=== PATIENT | male | born 1970 | race Caucasian/White ===

== ENCOUNTER 2019-09-04 15:30 | Observation (INO) | payer BC, SELFPAY ==
[2019-09-04] VITALS (11 sets, daily range): BP systolic 154–174; BP diastolic 94–124; PULSE 69–88; RESP 14–19; TEMP 35.4–36.6; O2SAT 96–100; BMI 35.7
--- NOTE | ~2019-09-04 | CT_ITS ---
EXAMINATION: CTA brain carotid DATE: 09/04/2019 21:35 INDICATION: Dizziness TECHNIQUE: Computed tomographic angiography (CTA) of the head was performed without and with 100 mL O mnipaque-350 intravenous contrast. CTA of the neck was performed with intravenous contrast. The dose- length product was 1220.17 mGy-cm. Maximum intensity projection and volume rendered 3D-reconstruction s were created by the technologist on a separate workstation. Automated exposure control and iterativ e reconstruction technique were employed. COMPARISON: Noncontrast CT from earlier today FINDINGS: HEAD CTA: There is no intracranial hemorrhage, acute infarction, or abnormal mass lesion. The ventri cles are normal. There is no abnormal mass effect or midline shift. The foster-white matter differentia tion is normal. The basal cisterns are patent. The orbits are normal. The paranasal sinuses, mastoids and calvarium are normal. There is no significant stenosis of the basilar artery or posterior cerebral arteries. There is no si gnificant stenosis of the intracranial internal carotid arteries or the anterior or middle cerebral a rteries. The anterior communicating artery and posterior communicating arteries are normal. There is no aneurysm. NECK CTA: The thyroid gland is unremarkable. The submandibular and parotid glands are symmetric. Ther e is no lymphadenopathy. There are no masses identified. The airway is unremarkable. There are no oss eous abnormalities. The orbits are unremarkable. The superior mediastinum is unremarkable. There is m ild cervical spondylosis. There is 0% stenosis of the proximal right internal carotid artery relative to normal distal artery l umen diameter (NASCET criteria). There is 0% stenosis of the proximal left internal carotid artery re lative to normal distal artery lumen diameter. IMPRESSION: 1. No acute intracranial abnormality. Normal head CTA. 2. 0% stenosis of the proximal right internal carotid artery relative to normal distal artery lumen d iameter (NASCET criteria). 3. 0% stenosis of the proximal left internal carotid artery relative to normal distal artery lumen di ameter. Reviewed, dictated and finalized at location A. IMPRESSION: 1. No acute intracranial abnormality. Normal head CTA. 2. 0% stenosis of the proximal right internal carotid artery relative to normal distal artery lumen diameter (NASCET criteria). 3. 0% stenosis of the proximal left internal carotid artery relative to normal distal artery lumen diameter.
--- NOTE | ~2019-09-04 | MR_ITS ---
EXAMINATION: MR brain/brain stem wo/w con DATE: 09/05/2019 08:18 CDT INDICATION: Dizziness and difficulty ambulating TECHNIQUE: Magnetic resonance imaging (MRI) of the brain and brainstem was performed without and with 20 cc MultiHance intravenous contrast. Sequences included sagittal and axial T1-weighted SE, axial d iffusion-weighted FS SE, axial T2*-weighted GRE, axial T2-weighted FLAIR Propeller, and axial T2-weig hted Propeller. Apparent diffusion coefficient (ADC) maps were created. COMPARISON: CT dated 09/04/2019 FINDINGS: The brain volume and ventricular system are within normal limits. The brain parenchymal si gnal intensity pattern and foster/white matter is normal and there is no evidence of hemorrhage, space occupying masses or infarctions. The flow signal voids of the major arterial structures about the [place] and within the ru[place] r dural venous sinuses appear grossly unremarkable and patent. The seventh and eighth cranial nerve complexes are normal. The mid sagittal image demonstrates a normal craniovertebral junction and kurt us callosum. Small mucous retention cyst of the right maxillary sinus. No evidence for disconjugate g aze. No abnormal contrast enhancement was appreciated. IMPRESSION: 1: No acute intracranial abnormality. Reviewed, dictated and finalized at location A.
--- NOTE | ~2019-09-04 | CT_ITS ---
EXAMINATION: CT brain wo con INDICATION: Dizziness, hypertension COMPARISON: None TECHNIQUE: Standard unenhanced head CT. The dose-length product (DLP) was 756.67 mGy-cm. The mA was a djusted according to patient size. Iterative reconstruction technique was employed. FINDINGS: There is no intracranial hemorrhage, acute infarction, or abnormal mass lesion. The ventric les are normal. There is no abnormal mass effect or midline shift. The foster-white matter differentiat ion is normal. The basal cisterns are patent. The orbits are normal. The paranasal sinuses, mastoids and calvarium are normal. IMPRESSION: 1. No acute intracranial abnormality. Reviewed, dictated and finalized at location A.
--- NOTE | ~2019-09-04 | XR_ITS ---
EXAMINATION: XR chest 2V DATE: 09/04/2019 18:41 INDICATION: Dizziness and hypertension TECHNIQUE: AP and lateral views of the chest are obtained. COMPARISON: 12/31/2008 FINDINGS: The lungs are free of acute opacities. There is no pleural effusion or pneumothorax. The ca rdiomediastinal silhouette is normal. The visualized bones and soft tissues are unremarkable. IMPRESSION: 1. No acute cardiopulmonary abnormality. Reviewed, dictated and finalized at location A.
--- NOTE | 2019-09-04 15:35 | ECG_ITS ---
Measurements Intervals [place] Rate: 80 P: -25 ME: 164 QRS: -26 QRSD: 91 T: -26 QT: 352 QTc: 408 Interpretive Statements SINUS RHYTHM INCOMPLETE RIGHT BUNDLE BRANCH BLOCK CANNOT RULE OUT SEPTAL INFARCT, AGE INDETERMINATE BORDERLINE T WAVE ABNORMALITY- DIFFUSE LEADS BASELINE ARTIFACT- I, II, III, AVL, V1 ABNORMAL ECG Electronically Signed On 09-04-2019 15:57:35 CDT by Que Loo D.O.
[2019-09-04 16:00] LABS: Basophils Absolute Auto 0.1 K/mm3 (0.0-0.1); Basophils Percent Auto 0.7 % (0.2-1.2); Eosinophils Absolute Auto 0.4 K/mm3 (0-0.3); Eosinophils Percent Auto 3.6 % (0-4.4); Hematocrit 47.4 % (42.0-52.0); Hemoglobin 15.9 g/dL (14.0-18.0); Immature Granulocyte Absolute 0.02 K/mm3 (0.00-0.031); Immature Granulocyte Percent A 0.2 % (0-0.5); Lymphocytes Absolute Auto 3.26 K/mm3 (0.9-3.2); Mean Corpuscular HGB Conc 33.5 g/dl (32-36); Mean Corpuscular Hemoglobin 30.2 pg (26-34); Mean Corpuscular Volume 90.1 fl (80-100); Mean Platelet Volume 9.9 fl (7.4-10.4); Monocytes Absolute Auto 1.3 K/mm3 (0.1-0.6); Monocytes Percent Auto 12.3 % (2.6-8.5); Neutrophils Absolute Auto 5.2 K/mm3 (1.3-6.7); Neutrophils Percent Auto 51.2 % (45.5-73.1); Platelet Count Result 243 k/mm3 (150-375); Red Blood Count 5.26 M/mm3 (4.6-6.20); Red Cell Distribution Width 13.5 % (11.5-14.5); White Blood Count 10.2 K/mm3 (4.5-10.0)
[2019-09-04 16:13] LABS: Blood Urea Nitrogen 16 mg/dL (9-20); Calcium 9.6 mg/dL (8.4-10.2); Carbon Dioxide 27 mmol/L (22-30); Chloride 106 mmol/L (98-107); Estimated CRCL calculation 102 ml/min; Estimated Glomerular Filt Rate > 60; Glucose 90 mg/dL (75-110); Potassium 3.9 mmol/L (3.4-5.0); Sodium 139 mmol/L (137-145)
[2019-09-04] MEDS: ONDANSETRON INJ 4 MG/2 ML VIAL (16:26)
--- NOTE | 2019-09-04 16:26 | PC.NURSE ---
vrbo for zofran [address] armando x1
[2019-09-04] MEDS: MECLIZINE HCL 25 MG TABLET PO (17:12)
[2019-09-04] MEDS: SODIUM CHLORIDE 0.9% IV 1,000 ML 999 ML IV CONT (17:13)
--- NOTE | 2019-09-04 17:37 | ED.DIZZY ---
HPI - Dizziness General Chief Complaint: Dizziness Stated Complaint: dizzy/ htn Time Seen by Provider: 09/04/19 16:44 Source: patient Mode of arrival: wheelchair Limitations: no limitations History of Present Illness HPI Narrative: This is a 49 year old male that presents to the ER for dizziness since this morning. Reports he was sitting at his desk working and suddenly started to feel dizzy. Reports this improved without intervention. Reports another episode a couple hours later. Reports this afternoon dizziness started again and it has been constant since. Reports he feels like the room is spinning. Reports vomiting. Denies vision changes, chest pain, shortness of breath, numbness or weakness. Related Data Home Medications Medication Instructions Recorded Confirmed ramipril [Altace] 10 mg PO DAILY 09/04/19 09/04/19 Allergies Allergy/AdvReac Type Severity Reaction Status Date / Time No Known Allergies Allergy Verified 09/04/19 15:30 Review of Systems Review of Systems: Narrative: CONSTITUTIONAL: Denies fever EYES: Denies visual changes CARDIOVASCULAR: Denies chest pain RESPIRATORY: Denies cough or dyspnea. GASTROINTESTINAL: Reports vomiting NEUROLOGIC: Denies headache, numbness, or weakness. All systems reviewed & are unremarkable except as noted in HPI and below PMFSH Past Medical History Medical History (Updated 09/04/19 @ 21:48 by Kinza Bridges PA-C) History of hypertension History of prostate cancer Surgical History Surgical History (Updated 09/04/19 @ 17:44 by Kinza Bridges PA-C) History of hernia repair History of prostatectomy Family History Family History (Updated 02/05/12 @ 13:25 by DOCTOR UNKNOWN) Other Cerebrovascular accident Social History Social History Smoking status: Never smoker Alcohol intake: current Gender identity (if verbalized by the patient): Male Exam Narrative: Exam Narrative: GENERAL: Well-appearing, well-nourished, and in no acute distress. HEAD: Normocephalic, atraumatic. EYES: PERRLA and EOMI. ENT: Nares clear, no rhinorrhea or epistaxis. Mucous membranes moist. Oropharynx without tonsillar hypertrophy exudate or other lesions. Bilateral TMs pearly foster non-bulging NECK: Supple. No adenopathy or masses. CHEST: Clear to auscultation. No respiratory distress. No wheezes rales or rhonchi HEART: Regular rate and rhythm. No murmur heard. Normal peripheral pulses. EXTREMITIES: Normal range of motion. No edema. SKIN: Warm, dry, no rash. NEURO: No focal deficits. Alert and oriented x3. Cranial nerves II through XII grossly intact. Normal [id number]. Normal hcco-bf-[id number]. Unsteady gait PSYCH: Normal mood and affect Course Consultations Consultation #1: Spoke with hospitalist about patient and work-up accepts admission Date: 09/04/19 Time: 21:33 Consultation #2: Spoke with neurologist who will consult Date: 09/04/19 Time: 21:34 Vital Signs Vital signs: Vital Signs Respiratory Rate 14 09/04/19 15:32 Temperature 97.9 F 09/04/19 20:15 Pulse Rate 72 09/04/19 20:15 Respiratory Rate 16 09/04/19 20:15 Blood Pressure 157/94 H 09/04/19 20:15 Pulse Oximetry 98 09/04/19 20:15 MDM - Dizziness MDM Narrative Medical decision making narrative: Patient presents to the emergency department for dizziness since this morning. Had a couple acute episodes this morning and then has felt constantly dizzy since this afternoon. Patient's blood pressure elevated 150s-170s systolic. Otherwise vitals are normal. Patient does have an unsteady gait, otherwise he is neurologically intact. CBC and metabolic panel are without acute findings. Chest x-ray is without acute changes. CT scan of the brain is without acute findings. EKG with nonspecific ST changes. Patient denies any chest pain. Patient given IV fluids, meclizine, Zofran and Ativan without relief. Still with unsteady gait. Patient will be admitted for further evaluation and yennifer
--- NOTE | 2019-09-04 23:11 | ADMGEN ---
This patient, Ozzie Strauss, was admitted to Medical Room 347-. Patient/family oriented to hospital policies and general routines including ID bracelet, bed and alarms, visiting hours, pain management, procedures, bathroom and other care routines, personal items, smoking policy, room service/diet, and visiting hours. Valuables list has been completed. Information on how to activate the Rapid Response Team has been discussed. Patient/Family are encouraged to report perceived risks to care and to ask questions if they do not understand what they are told or what they should do.
[2019-09-05] VITALS: PULSE 73
[2019-09-05 04:00] VITALS: PULSE 61
[2019-09-05 05:49] VITALS: BP 137/88; PULSE 71; RESP 16; TEMP 36.3; O2SAT 99
--- NOTE | 2019-09-05 06:41 | PM.IMHP ---
H&P: HPI History of Present Illness Chief complaint: Dizzy Narrative: Date and time of patient contact: 09/05/2019 at 6:00 a.m. Ozzie Strauss is a 49 year old male with a past medical history of obesity and hypertension who presented to the ER with vertigo. The patient had been sitting at his computer, working from home, when he had a brief episode of dizziness associated with some mild nausea. The episode initially lasted 1 or 2 minutes. It reoccurred a few minutes later but then resolved until the afternoon. In the afternoon E had dizziness that was more severe and accompanied with with severe nausea and diaphoresis. The dizziness has been constant since that time and is worse with position changes. Dizziness is slightly worse when turning his head to the right. He reported that the dizziness was so severe that he had some difficulty focusing to read the words on his admission paperwork. He did check his blood pressures at home and noted that they were elevated to 160/120. When he arrived to the ER his blood pressures were in the 160s over 100 range for the most part. He had never had similar symptoms. He had denies any ear pain or fullness, recent upper respiratory symptoms, fevers or chills. The patient admits that he does snore quite a bit. He claims that he feels well rested after sleeping. He drinks 6-8 alcoholic beverages a night. He denies ever having symptoms of alcohol withdrawal. Has went several days without alcohol use in the past. Review of Systems Review of Systems: Narrative: 12 systems were reviewed with pertinent positives and negatives per HPI. Except as documented in the HPI, all other systems were reviewed and are negative. [facility] Past Medical History Medical History (Updated 09/05/19 @ 08:11 by Praveena Calderon DO) Essential hypertension History of prostate cancer Obesity (BMI 30-39.9) Surgical History Surgical History (Updated 09/04/19 @ 17:44 by Kinza Bridges PA-C) History of hernia repair History of prostatectomy Family History Family History (Updated 09/05/19 @ 07:56 by Praveena Calderon DO) Father Hypertension Renal cancer Diabetes mellitus Mother Hypertension Sibling Hypertension Sister Social History Social History (Updated 09/05/19 @ 08:06 by Praveena Calderon DO) Social History: Primary care physician: Dr. Daryl Cordova Smoking status: Never smoker Alcohol intake: current Drinks per week: 50 Alcohol use details: He drinks 6-8 alcoholic beverages a day. Substance use: never Substance use type: does not use Additional living arrangements comments: He lives in [place] with his of 25 years. He has 3 sons ages 22 and 19-year-old twins. 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 Gender identity (if verbalized by the patient): Male Spiritual care concerns: No Meds Home Medications and Allergies Home Medications Medication Instructions Recorded Confirmed Type albuterol sulfate 1 inh INHALATION QID PRN 09/04/19 09/04/19 History ramipril [Altace] 10 mg PO DAILY 09/04/19 09/04/19 History Allergies Allergy/AdvReac Type Severity Reaction Status Date / Time No Known Allergies Allergy Verified 09/04/19 15:30 Vital Signs Vital Signs - 24 hr 09/04/19 15:32 09/04/19 15:47 09/04/19 17:13 Temperature 95.8 F L Pulse Rate 88 82 Respiratory Rate 14 16 16 Blood Pressure 161/100 H 156/109 H Pulse Oximetry 99 98 09/04/19 17:44 09/04/19 18:00 09/04/19 18:02 Temperature Pulse Rate 72 70 75 Respiratory Rate 19 Blood Pressure 156/95 H 154/100 H 174/124 H Pulse Oximetry 96 09/04/19 18:25 09/04/19 19:12 09/04/19 20:15 Temperature 97.9 F Pulse Rate 70 69 72 Respiratory Rate 18 18 16 Blood Pressure 160/107 H 154/112 H 157/94 H Pulse Oximetry 97 99 98
[2019-09-05 08:00] VITALS: PULSE 76
[2019-09-05] MEDS: ramipriL 5 MG CAPSULE 10 MG PO (08:33)
[2019-09-05] MEDS: MECLIZINE HCL 25 MG TABLET PO ×3 (08:33→16:03)
[2019-09-05] MEDS: ONDANSETRON INJ 4 MG/2 ML VIAL IV PUSH (08:33)
[2019-09-05 12:00] VITALS: PULSE 70
--- NOTE | 2019-09-05 15:11 | PM.DS ---
DS: Admitting Diagnosis Admitting Diagnosis Admitting Diagnosis: Dizziness and giddiness DS: Discharge Diagnosis Discharge Diagnosis (1) Vertigo: Code(s): R42 - Dizziness and giddiness Status: Acute Assessment and Plan: Unclear if this is central versus peripheral vertigo. Brain MRI and head/neck CTA unremarkable. Neurology has been consulted and states patient is okay for discharge from their standpoint Neurology recommends Meclizine TID scheduled. Patient states this has helped some. Will do 1 weeks worth with follow up with PCP Will do Zofran as needed for nausea and vomiting for one week Will place order for vestibular PT as well F/u with PCP in 1-2 weeks (2) Hypertension: Code(s): I10 - Essential (primary) hypertension Status: Acute Assessment and Plan: Patient's blood pressures were moderately elevated last night. BP improved today. 140s sys this afternoon Continue the patient's home RADHA-inhibitor F/u with PCP. DS: Summary Hospital Course Reason for hospitalization: Vertigo, CVA r/o Hospital Course: Patient is a 49 yo M with history of hypertension, obesity, and prostate cancer who presented to the ED on 09/03 with complaints of dizziness that started that morning. While in the ED, Head CT was obtained and showed no acute intracranial abnormality; meclizine, zofran, ativan and IVF were given without relief and patient walking with an unsteady gait which CVA was still of concern. Patient admitted under this setting. Please see H&P for further details. Presenting VS: BP 161/100, HR 88, RR 14, temp 95.8, sat 99% RA Presenting Pertinent labs: CBC and chemistry grossly unremarkable Micro: none Imaging: Head CT 09/04/19 18:48 IMPRESSION: 1. No acute intracranial abnormality. Chest X-Ray 09/04/19 19:24 IMPRESSION: 1. No acute cardiopulmonary abnormality Head/Neck CTA 09/04/19 21:41 IMPRESSION: 1. No acute intracranial abnormality. Normal head CTA. 2. 0% stenosis of the proximal right internal carotid artery relative to normal distal artery lumen diameter (NASCET criteria). 3. 0% stenosis of the proximal left internal carotid artery relative to normal distal artery lumen diameter. Brain MRI 09/05/19 08:16 IMPRESSION: 1: No acute intracranial abnormality. ECG: Interpretive Statements SINUS RHYTHM INCOMPLETE RIGHT BUNDLE BRANCH BLOCK CANNOT RULE OUT SEPTAL INFARCT, AGE INDETERMINATE BORDERLINE T WAVE ABNORMALITY- DIFFUSE LEADS BASELINE ARTIFACT- I, II, III, AVL, V1 ABNORMAL ECG Patient was admitted to the hospitalist service for further evaluation for vertigo and CVA rule out; Dr. Hoang (Neurology) was consulted for further input on the matter. As above, imaging was grossly unremarkable for any acute findings making CVA unlikely. No masses/lesions noted on brain imaging either. Day of discharge patient stated meclizine helped somewhat with his symptoms. Neurology felt this was likely labyrinthine dysfunction with exam suggestive of underlying vestibular pathology. Neurology was cleared for discharge from their standpoint. They recommended meclizine three times daily and zofran for any nausea or vomiting. Vestibular PT referral was provided at discharge as well. He was to follow up with his PCP and Neurology after discharge. Patient and agreeable and comfortable with plan for discharge. Patient hemodynamically stable and in improved condition for discharge on 09/04. Status at Discharge Overall status at discharge: patient is progressing back to baseline Time Spent with Patient Time attestation: Total time spent providing and/or coordinating discharge services: Time spent: Greater than 30 minutes Exam Narrative: Exam Narrative: Patient sitting upright in bed at time of visit. is in room visiting Const: General: cooperative, healthy appearing, comfortable, no acute distress, well developed and
[2019-09-05 15:16] VITALS: BP 147/91; PULSE 72; RESP 18; TEMP 36.1; O2SAT 98
--- NOTE | 2019-09-05 16:41 | CONS_ITS ---
DATE OF CONSULTATION: 09/04/2019 HISTORY OF PRESENT ILLNESS: A 49-year-old right-handed male has been admitted to [facility] through the emergency room with the complaints of being dizzy. Reportedly, he has been sitting at his computer working from home when he had a brief episode of dizziness with mild nausea. Episode lasted for about couple of minutes, recurred a few minutes later, but then resolved until the afternoon. In the afternoon, he had dizziness, which is more severe accompanied with severe nausea and diaphoresis that is constant, aggravated by the position changes, but even turning his head to the right, dizziness was so severe that he has had some difficulty in focusing to read the words on the admission paperwork. His blood pressure was checked at home, it was 160/120. When he arrived in the emergency room, sit down to 160/100. He never had a similar symptomatology in the past. He drinks 6 to 8 alcoholic beverages at night. He has no history of alcohol withdrawal. PAST MEDICAL HISTORY: Consistent with the essential hypertension, prostate cancer, and obesity with BMI of 30 to 39.9. PAST SURGICAL HISTORY: Surgically, he has undergone hernial repair, prostatectomy, never smoker. Drinks alcohol. Currently 6 to 8 beverages per day, never substance abuser. At the time of admission to the hospital, he was taking albuterol sulfate inhalation, ramipril 10 mg daily. ALLERGIES: HE IS NOT ALLERGIC TO ANY MEDICATION. PHYSICAL EXAMINATION: VITAL SIGNS: Evaluation up until now documented him to be afebrile, pulse 88, respiration 14, blood pressure 161/100, pulse ox 99%. GENERAL: Physical examination revealed him to be awake, alert, cooperative, in no obvious acute distress. His weight of 119.5 kg. The BMI of 35.7. HEENT: Head normocephalic with no cranial bruit. Ear, nose, throat examination was normal. NECK: Supple with no cervical bruit. No thyromegaly. No lymphadenopathy. HEART: Regular. LUNGS: Clear. ABDOMEN: Soft. NEUROLOGICAL: He was awake, alert, oriented x3. Speech not dysphasic, not dysarthric, not dysphonic. Pupils are round, regular, react to light equally. Extraocular movements were full with the nystagmus, particularly more looking to the left side. At this particular time, though it is still there on looking to the right side as well. Facial sensation intact. Face symmetrical. Tongue midline. Uvula midline. Motor examination revealed him to have no drift of 1 side or other side. Reflexes symmetrical. Plantar downgoing. LABORATORY DATA: Evaluation up until now included CBC with WBC 10.2, hemoglobin 15.9, platelet count 243. Normal basic metabolic panel. EKG with incomplete right bundle-branch block. CT scan of the head negative. Chest x-ray negative. CTA was also done, which revealed no evidence of large arterial stenosis, in fact, there was 0% bilaterally. MRI of the brain has also been done, which revealed no evidence of acute intracranial abnormality. IMPRESSION: Labyrinthine dysfunction with normal CTA and normal brain and MRI and also abnormal clinical neurological examination with bilateral nystagmus, more prominent on looking to the left side suggestive for underlying vestibular pathology. TERESITA CANELA M.D. PSYCH SOCIAL WORKER PSYCH SOCIAL WORKER D I MT: [place]
== END 2019-09-05 16:20 | disposition home or self-care (01) ==
LOC: ANHED 21:04 → ANH3MED 21:39
PROVIDERS: Admitting Provider Internal Medicine; Emergency Provider Emergency Medicine; PCP Psychiatry & Neurology Neurology; Visit Provider Internal Medicine
DX: R42 Dizziness and giddiness (principal); I10 Essential (primary) hypertension; R26.81 Unsteadiness on feet; E66.9 Obesity, unspecified; Z68.35 Body mass index [BMI] 35.0-35.9, adult; Z85.46 Personal history of malignant neoplasm of prostate
CPT/HCPCS: 36415; 70450; 70496; 70498; 70553; 71046; 80048; 85025; 93005; 96361; 96374; 96375; 96376; 99285; A9270; A9577; G0378; J2060; J2405; J3360; J7030; Q9967

== ENCOUNTER 2021-08-02 10:55 | Emergency (ER) | payer OTHER, SELFPAY ==
[2021-08-02 11:04] VITALS: BP 141/107; PULSE 83; RESP 16; TEMP 36.1; O2SAT 100
--- NOTE | 2021-08-02 12:23 | ED.EXTPRO ---
HPI - Extremity Problem General Chief complaint: Extremity Problem,Nontraumatic Stated complaint: pain,swelling redness right foot Time Seen by Provider: 08/02/21 12:16 Source: patient Mode of arrival: ambulatory Limitations: no limitations History of Present Illness HPI Narrative: Patient presents today complaining of pain, swelling, and redness to the base of the right first toe x3 days that has continued to worsen since onset. Denies numbness or tingling. He is pain-free at rest, but increases to 7/10 with any movement or weightbearing. He has been taking ibuprofen with mild relief. Denies any history of gout or diabetes. Related Data Home Medications Medication Instructions Recorded Confirmed ramipril 10 mg capsule (Altace) 10 mg PO DAILY 09/04/19 08/02/21 atorvastatin 10 mg tablet 10 mg PO DAILY 08/02/21 08/02/21 Allergies Allergy/AdvReac Type Severity Reaction Status Date / Time No Known Allergies Allergy Verified 08/02/21 11:35 Review of Systems Review of Systems: CONSTITUTIONAL: Denies body aches, fever, chills, or sweats. EYES: Denies visual changes, redness, or discharge. ENT: Denies rhinorrhea, congestion, sore throat, or otalgia. CARDIOVASCULAR: Denies chest pain, palpitations, or edema. RESPIRATORY: Denies cough or dyspnea. GASTROINTESTINAL: Denies abdominal pain, nausea, vomiting, or diarrhea. GENITOURINARY: Denies dysuria or hematuria. SKIN: Denies rash, itching, or wounds. MUSCULOSKELETAL: Denies back pain, or myalgia.+ Right first toe swelling and pain NEUROLOGIC: Denies headache, numbness, tingling, or weakness. PSYCH: Denies depression or anxiety. [facility] Past Medical History Medical History Essential hypertension History of prostate cancer Obesity (BMI 30-39.9) Surgical History Surgical History History of hernia repair History of prostatectomy Family History Family History Father Hypertension Renal cancer Diabetes mellitus Mother Hypertension Sibling Hypertension Sister Social History Social History Social History: Primary care physician: Dr. Daryl Cordova Smoking status: Never smoker Alcohol intake: current Drinks per week: 50 Alcohol use details: He drinks 6-8 alcoholic beverages a day. Substance use: never Substance use type: does not use Additional living arrangements comments: He lives in [place] with his of 25 years. He has 3 sons ages 22 and 19-year-old twins. 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 Gender identity (if verbalized by the patient): Male Spiritual care concerns: No Comments At time of signature, I have reviewed and agree with nursing past medical, surgical, social and family history unless otherwise noted. Please see nursing chart for further information. There is no relevant family history pertinent to the presenting complaint Exam Narrative: GENERAL: Well-appearing, well-nourished, and in no acute distress. HEAD: Normocephalic, atraumatic. EYES: EOMI. No redness or drainage. Conjunctivae normal. ENT: Mucous membranes pink and moist. NECK: Normal AROM. CHEST: No respiratory distress. EXTREMITIES: Mild to moderate swelling and mild erythema to the right first MTP with tenderness to palpation. The erythema faintly extends proximally. Distal sensation intact. Capillary refill normal. Pedal pulse normal. Full range of motion of all toes with increased pain in the first toe. SKIN: Warm, dry, no rash. Capillary refill normal. Normal skin turgor. NEURO: No focal deficits. Alert and oriented x3. Gait steady. PSYCH: Normal affect. No si
== END 2021-08-02 12:39 | disposition home or self-care (01) ==
PROVIDERS: Emergency Provider Nurse Practitioner
DX: M10.9 Gout, unspecified (principal); I10 Essential (primary) hypertension; E66.9 Obesity, unspecified; Z68.35 Body mass index [BMI] 35.0-35.9, adult; Z85.46 Personal history of malignant neoplasm of prostate; Z90.79 Acquired absence of other genital organ(s)
CPT/HCPCS: 99213; G0463

== ENCOUNTER 2024-02-17 00:58 | Day surgery (SDC) | payer OTHER, SELFPAY ==
[2024-02-08 12:46] VITALS: BMI 34.0
--- NOTE | 2024-02-08 12:51 | PC.NURSE ---
Report to the Outpatient Waiting Room, entrance under the green pavilion located off [facility], at time _1000_ on date _[id number]_. Planned Procedure Time: _1200_.? Time changes happen often and if your time is changed the preop area will call you the afternoon before. - You and your visitor will be asked to self-screen and do not enter if you have any COVID symptoms. Please call surgeon if you need to reschedule. - A mask is optional within the hospital at this time. Patients may have clear liquids (water, carbonated beverages, clear teas, apple juice) until 3 hours prior to surgery with a maximum of 20 ounces. - No food from midnight until time of surgery and no smoking. This includes no chewing gum, candy or mints. Take only the following medications with a SIP of water on the morning of surgery: __None____ DO NOT STOP ANY OF YOUR OTHER PRESCRIPTION MEDICATIONS PRIOR TO SURGERY EXCEPT THE FOLLOWING Medications to discontinue per physician ____All vitamins and supplements Date to take last bbsq___[id number]___ Please no make-up, nail kinyarwanda, hairspray, perfume, deodorant, or body powder the day of surgery.? No jewelry (including any body piercings) or valuables the day of surgery, leave them at home.? Please take a shower or bath the night before, or the morning of, surgery with an antibacterial soap.? Wear comfortable, loose fitting clothing.? - Jewelry must be removed prior to entering the operating room.? Rings and piercings that are not removed may be cut off. - The hospital will not accept responsibility for valuables.? - Please leave all valuables, including medications, at home the day of surgery. If you are going home after surgery, a licensed team cdl driver must drive you home.? - NO public transportation without another adult if you receive anesthesia. - We recommend that an adult stay with you for 24 hours following discharge. - We also recommend that you do not drive, make important decision, drink alcoholic beverages, or take any drugs that were not prescribed by your health care provider for at least 24 hours after your discharge time. Follow any additional instructions given to you from your surgeon. Telephone instructions given to _Rick__and asked if any additional questions and then verbalized understanding. Patient advised to call surgeon office or pre surgery nurse liaison [phone] if any additional questions.
--- NOTE | 2024-02-15 15:36 | P.SS_ITS ---
Same Day Admit/Disch: HPI History of Present Illness Chief complaint: scalp cyst(3), Skin lesion face, skin tag lft shou Narrative: Ozzie Strauss is a 53 year old male who saw me in late December with multiple skin complaints. He was found to have 3 small skin cysts of the scalp. These cysts her when combing his hair and sometimes when lying down. He has a pigmented nevus on his right mandible area that gets injured when he shaves. He also has a skin tag in the left shoulder which is easily irritated with dressing. [facility] Past Medical History Medical History Hyperlipidemia Gout Obesity (BMI 30-39.9) Essential hypertension History of prostate cancer Surgical History Surgical History History of hernia repair History of prostatectomy Family History Family History Father Hypertension Renal cancer Diabetes mellitus Mother Hypertension Sibling Hypertension Sister Social History Social History Social History: Primary care physician: Dr. Daryl Cordova Smoking status: Never smoker Alcohol intake: current Drinks per week: 8 Alcohol use details: He drinks 6-8 alcoholic beverages a day. Substance use: never Substance use type: does not use Living arrangements: with family Additional living arrangements comments: He lives in [place] with his of 25 years. He has 3 sons ages 22 and 19-year-old twins. 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 Gender identity (if verbalized by the patient): Male Spiritual care concerns: No Same Day Admit/Disch: Med Pre-admit Medications Home Medications ?Medication ?Instructions ?Recorded ?Confirmed ?Type atorvastatin 10 mg tablet 10 mg PO DAILY 08/02/21 02/17/24 History allopurinol 100 mg tablet 100 mg PO DAILY 12/30/23 02/17/24 History multivitamin 1 tablet PO DAILY 12/30/23 02/17/24 History red beet root 250 mg-sour michele 1 tablet PO DAILY 12/30/23 02/17/24 History extract 0.5 mg chewable tablet cholecalciferol (vitamin D3) 125 125 mcg PO DAILY 02/08/24 02/17/24 History mcg (5,000 unit) tablet (Vitamin D3) ramipril 10 mg capsule 10 mg PO DAILY 02/08/24 02/17/24 History turmeric root extract 150 1 tablet PO DAILY 02/08/24 02/17/24 History mg-nelly root extract 25 mg chewable tablet vitamin B complex 1 tablet PO DAILY 02/08/24 02/17/24 History tramadol 50 mg tablet 50 mg PO Q6H PRN pain #10 tabs 02/17/24 Rx Review of Systems Review of Systems All systems reviewed & are unremarkable except as noted in HPI and below (HPI) Exam Const: General: comfortable, no acute distress, alert and awake HENMT: Head: normocephalic and atraumatic Mouth: Yes Normal oral and palatal mucosa present Eyes: Conjunctivae: conjunctivae normal Pupils: Equal, round and reactive pupils present EOM: EOMs intact bilaterally Neck: Neck: normal visual inspection, no lymphadenopathy and nontender Resp: Effort & Inspection: normal respiratory effort Auscultation: clear to auscultation bilaterally Cardio: Rate: regular rate Rhythm: regular rhythm Heart sounds: no gallops, no murmurs and no rubs GI: Inspection: non-distended GI Palp: Yes Soft to palpation, No Tenderness to palpation present (GI), No Hepatomegaly present and No Splenomegaly present Skin: Lesions: lesion noted (Scalp, right mandible, left shoulder-see below) Rashes: no rashes Other: -On the left side of scalp close to midl ine, there is a 1x1cm raised but smooth lesion. Then just below and posterior is another raised smooth subcutaneous nodule measuring 1.5x1.3cm. 8x8mm smooth, raised lesion on the right side near the scalp line of the upper forehead. These are consistent with scalp cystic masses. -7x6mm raised lesion with umbilication i n the center in the area of the right mandible. -Brownish skin tag with fairly wide base on the anterior left shoulder near clavicle. Soft, mobile. Neuro: General: no focal motor deficits and CN's II-XI intact bilaterally Cranial nerves: Yes Equal, round and reactive pupils present, Yes Bilaterally intact EOM present, Yes facial symmetry and Yes Midline tongue present Speech: normal speech Motor exam (neuro): 5/5 motor strength present throughout and Motor abnormalities not present Extrem: General: no clubbing, cyanosis or edema and edema Psych: Affect: normal affect Thought process: Normal thought process present Insight: Good insight present (Psych) DS: Summary Time Spent with Patient Time attestation: Total time spent providing and/or coordinating discharge services: DS: Admitting Diagnosis Discharge Date 02/17/2024 Admitting Diagnosis Scalp cysts x3-symptomatic, planned to excise under anesthesia. Pigmented nevus right mandible-somewhat suspicious but also gets injured when shaving. Will remove Skin tag left shoulder-easily irritated when changing clothes. Will remove at same procedure. DS: Discharge Diagnosis Discharge Diagnosis (1) Scalp cyst: Code(s): L72.9 - Follicular cyst of the skin and subcutaneous tissue, unspecified Status: Acute (2) Skin tag: Code(s): L91.8 - Other hypertrophic disorders of the skin Status: Acute (3) Skin lesion of face: Code(s): L98.9 - Disorder of the skin and subcutaneous tissue, unspecified Status: Acute Plan All [address] Correia in as an outpatient 02/17/2024 Discharge Plan Discharge Patient Disposition: Home, Self-Care Discharge Instructions: * Okay to remove Band-Aid left shoulder and shower tomorrow. Okay to wash hair. Place Band-Aid over left shoulder lesion for a couple of days but then leave open. If rubbing on clothes, continue to use Band-Aid. All other wounds of the right face and both sides of the scalp can be left uncovered. Wash over all wounds when shower or bathe. * May drive a car again tomorrow. * No sports or vigorous activity for 1 week. * Make appointment to see Dr. Correia in 1 week, 02/24/2024 * Call for for persistent wound bleeding, severe pain from any wound, fever over 100.5?, or other significant change in condition. Patient Language: Luxembourgish Stand Alone Forms: General Discharge Instructions Follow-up/Referrals: Alin Correia MD [Physician] - 1 Week Discharge Medications: New tramadol 50 mg tablet 50 mg PO Q6H PRN (Reason: pain) Qty: 10 0RF Continued atorvastatin 10 mg Tablet 10 mg PO DAILY multivitamin Tablet 1 tablet PO DAILY red beet root-sour michele ext 250-0.5 mg tablet,chewable 1 tablet PO DAILY allopurinol 100 mg tablet 100 mg PO DAILY vitamin B complex Tablet 1 tablet PO DAILY ramipril 10 mg capsule 10 mg PO DAILY cholecalciferol (vitamin D3) [Vitamin D3] 125 mcg (5,000 unit) Tablet 125 mcg PO DAILY turmeric root-nelly root ext 150-25 mg Tablet,Chewable 1 tablet PO DAILY
[2024-02-17 10:15] VITALS: BP 124/85; PULSE 68; RESP 16; TEMP 36.4; O2SAT 100; BMI 35.2
[2024-02-17 10:47] LABS: Basophils Percent Auto 0.6 % (0.2-1.2); Eosinophils Absolute Auto 0.3 K/mm3 (0-0.3); Eosinophils Percent Auto 3.7 % (0-4.4); Hematocrit 47.6 % (42.0-52.0); Hemoglobin 15.8 g/dL (14.0-18.0); Immature Granulocyte Absolute 0.02 K/mm3 (0.00-0.031); Immature Granulocyte Percent A 0.3 % (0-0.5); Lymphocytes Percent Auto 30.7 % (18.3-44.2); Mean Corpuscular HGB Conc 33.2 g/dl (32-36); Mean Corpuscular Hemoglobin 30.5 pg (26-34); Mean Corpuscular Volume 91.9 fl (80-100); Mean Platelet Volume 10.3 fl (7.4-10.4); Monocytes Absolute Auto 0.6 K/mm3 (0.1-0.6); Monocytes Percent Auto 9.1 % (2.6-8.5); Neutrophils Absolute Auto 3.8 K/mm3 (1.3-6.7); Neutrophils Percent Auto 55.6 % (45.5-73.1); Platelet Count Result 212 k/mm3 (150-375); Red Blood Count 5.18 M/mm3 (4.6-6.20); White Blood Count 6.8 K/mm3 (4.5-10.0)
--- NOTE | 2024-02-17 11:33 | WPDANESEPPF ---
Anes - Initial Pre Proc Eval Procedure: Operation Date: 02/17/24 12:00 Proposed Procedures p Excision of Three Skin Cyst of Scalp, Skin Lesion of Right Cheek, Skin Tag Left Shoulder - Alin Correia MD Date/Time: 02/17/24 11:33 Surgeon: Alin Correia MD Pre Op Diagnosis: scalp cyst(3), Skin lesion face, skin tag lft shou Patient Data Age: 53 Gender: M Height: 1.83 m Weight: 113.6 kg Allergies Allergy/AdvReac Type Severity Reaction Status Date / Time No Known Allergies Allergy Verified 02/17/24 11:05 Home Medications ?Medication ?Instructions ?Recorded ?Confirmed ?Type atorvastatin 10 mg tablet 10 mg PO DAILY 08/02/21 02/17/24 History allopurinol 100 mg tablet 100 mg PO DAILY 12/30/23 02/17/24 History multivitamin 1 tablet PO DAILY 12/30/23 02/17/24 History red beet root 250 mg-sour michele 1 tablet PO DAILY 12/30/23 02/17/24 History extract 0.5 mg chewable tablet cholecalciferol (vitamin D3) 125 125 mcg PO DAILY 02/08/24 02/17/24 History mcg (5,000 unit) tablet (Vitamin D3) ramipril 10 mg capsule 10 mg PO DAILY 02/08/24 02/17/24 History turmeric root extract 150 1 tablet PO DAILY 02/08/24 02/17/24 History mg-nelly root extract 25 mg chewable tablet vitamin B complex 1 tablet PO DAILY 02/08/24 02/17/24 History Laboratory Tests 02/17/24 10:31 WBC 6.8 K/mm3 (4.5-10.0) RBC 5.18 M/mm3 (4.6-6.20) Hgb 15.8 g/dL (14.0-18.0) Hct 47.6 % (42.0-52.0) MCV 91.9 fl (80-100) MCH 30.5 pg (26-34) MCHC 33.2 g/dl (32-36) RDW 14.0 % (11.5-14.5) Plt Count 212 k/mm3 (150-375) MPV 10.3 fl (7.4-10.4) Immature Gran % (Auto) 0.3 % (0-0.5) Neut % (Auto) 55.6 % (45.5-73.1) Lymph % (Auto) 30.7 % (18.3-44.2) Door % (Auto) 9.1 H % (2.6-8.5) Eos % (Auto) 3.7 % (0-4.4) Baso % (Auto) 0.6 % (0.2-1.2) Lymph # (Auto) 2.10 K/mm3 (0.9-3.2) Door # (Auto) 0.6 K/mm3 (0.1-0.6) Eos # (Auto) 0.3 K/mm3 (0-0.3) Baso # (Auto) 0.0 K/mm3 (0.0-0.1) Abs Immat Gran (auto) 0.02 K/mm3 (0.00-0.031) Absolute Neuts (auto) 3.8 K/mm3 (1.3-6.7) Absolute Nucleated RBC 0.000 K/mm3 (0.0-0.012) Nucleated RBC % 0.0 % (0.0-0.2) Patient hx anesthesia problems: none Family hx anesthesia problems: none Results Review: All pre-operative results and documents have been reviewed as part of the pre-operative evaluation. [facility] Past Medical History Medical History Hyperlipidemia Gout Obesity (BMI 30-39.9) Essential hypertension History of prostate cancer Surgical History Surgical History History of hernia repair History of prostatectomy Family History Family History Father Hypertension Renal cancer Diabetes mellitus Mother Hypertension Sibling Hypertension Sister Social History Social History Social History: Primary care physician: Dr. Daryl Cordova Smoking status: Never smoker Alcohol intake: current Drinks per week: 8 Alcohol use details: He drinks 6-8 alcoholic beverages a day. Substance use: never Substance use type: does not use Living arrangements: with family Additional living arrangements comments: He lives in [place] with his of 25 years. He has 3 sons ages 22 and 19-year-old twins. 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 Gender identity (if verbalized by the patient): Male Spiritual care concerns: No Anes - Eval Final PreProcedure Day of Procedure 02/17/24 11:33 Patient weight: obese Heart: regular rate and rhythm Lungs: clear to auscultation Airway: Mallampati scale Neurological: alert and oriented Last oral intake: >/= 8 hours ASA classification: III Emergent: no Anesthetic plan: proceed Anesthesia type and monitoring: general GIVS and standard monitoring Results Review: All pre-operative results and documents have been reviewed as part of the pre-operative evaluation. HTN, hyperlipidemia, obesity, ARGENIS on CPAP. Informed Consent: The patient's anesthetic plan and its attendant risks and benefits were discussed with the patient/family/POA. Questions were solicited and answers provided to the satisfaction of the patient/family/POA.
--- NOTE | 2024-02-17 11:52 | WPDHPUPDATE1 ---
History and Physical Update Update Date/Time: 02/17/24 11:52 History and Physical has been reviewed, including an updated exam of the patient. There are NO changes in the patient's condition. Risks, benefits, and alternatives have been discussed and questions answered. Patient agrees to proceed with procedure.
[2024-02-17] MEDS: ceFAZolin 2 GM/D5W 50 ML 2 GM/50 ML BAG IVPB (12:10)
[2024-02-17] MEDS: NEOMYCIN/POLYMYXIN/BACITRACIN OINTMENT 15 GM TUBE 1 APPLIC TOPICAL (13:18)
[2024-02-17 13:39] VITALS: BP 107/73; PULSE 75; RESP 14; O2SAT 100
--- NOTE | 2024-02-17 13:53 | W.PM.PROC2 ---
Procedure Note - Detailed Date of Procedure 02/17/24 Pre-op Diagnosis scalp cyst(3), Skin lesion right cheek, skin tag left shoulder Post-op Diagnosis Same Procedure Performed Excision 3 scalp cysts: 1 cm left vertex, 1.5 cm left parietal, 0.9 cm right scalp-all removed with no margin. Excision 0.7 cm skin lesion right cheek with no margin, 5.5 cm layered closure. Removal skin tag left shoulder Surgeon Alin Correia MD Associate Professor Of Psychology Laura Palencia, [employer] OPERATOR Anesthesia General (LMA) and Local Indications Patient has 3 scalp cyst which are bothersome to him when he tries to [place] his hair and if he should happen to bump them. He also has a right mandibular skin lesion which protrudes and gets frequently injured when he tries to shave. He has a left shoulder skin tag which is irritated when changing clothes. Findings All lesions were removed with no margin. To left-sided scalp cyst-1 near the vertex of the scalp was 1 cm, a lower left parietal cyst was 1.5 cm, the right-sided scalp cyst was 0.9 cm. The skin lesion of the right cheek was 0.7 cm and raised. The skin tag of the left shoulder was only about 0.3 cm. Description of Procedure Patient was taken to surgery and anesthesia per LMA was introduced. We started on the patient's left-sided lesions. The 2 scalp cysts were prepped and the skin tag of the shoulder was prepped. Drapes were then placed. The proposed elliptical incisions for the 2 scalp cysts were marked on the skin. Local was infiltrated into the anticipated incisions. Local was also infiltrated deep to the skin tag on the left shoulder. The skin tag was excised with the scalpel 1st. The base was cauterized. The tag was sent to pathology. I then excised the uppermost skin cyst on the left side. The ellipse was incised and dissection through the skin and around the cyst was carefully carried out. The cyst was completely excised without injuring it. The cyst size was measured. The wound was then closed with simple interrupted sutures of 3-0 nylon. The parietal left-sided scalp cyst was then attended. In similar fashion, an ellipse around the cyst was incised and dissection around the cyst and through the skin was carried out. The cyst was removed completely without entering the cyst cavity. Both these cysts were measured with findings as above. The wound was made somewhat hemostatic with the cautery. The wound was closed with vertical mattress sutures of 3-0 nylon in interrupted fashion. We then turned the patient's head so that the right side of the face and scalp were visible. We re-prepped the scalp and the lesion on the right cheek. Draping was carried out as well. The proposed incisions were marked on the skin to remove both of these lesions. Local anesthetic was infiltrated into the area of the anticipated incisions as well. We started 1st with the right-sided scalp cyst. An ellipse was excised that allowed removal of the skin and the underlying cyst without entering the skin. Once the cyst was removed, it was measured with findings as above. The wound was cauterized to achieve hemostasis. The wound was then closed with vertical interrupted mattress sutures of 3-0 nylon. I turned my attention then to the right mandibular facial lesion. This skin lesion was excised also with an elllipse. Once excised, the lesion was measured and was 0.7 cm. The resultant wound was 5.5 cm. The subcutaneous tissues were closed with interrupted 4-0 Vicryl. Interrupted subcuticular 4-0 Vicryl skin stitches were then placed. Finally the skin was closed with a running 4-0 Monocryl skin suture. This wound was dressed with Exofin surgical adhesive. A Band-Aid was placed over the wound from skin tag removal. The scalp wounds were dressed with antibiotic ointment. The patient was then awakened and the LMA was removed. He was transferred to outpatient surgery in good condition. Sponge and needle counts were correct x2. Estimated Blood Loss -5 Pathology Yes (Vertex left scalp cyst, left parietal scalp cyst, right scalp cyst, 0.7 cm right cheek skin lesion, left shoulder skin tag) Complications None Condition Stable Disposition Same day [facility] Billing Surgery - Charge Forward: Surgery Billing (Excision left vertex scalp cyst 1 cm with no margin, excision left parietal scalp cyst 1.5 cm with no margin, excision right scalp cyst 0.9 cm with no margin. Excision 0.7 cm skin lesion right cheek with no margin, 5.5 cm layered closure. Removal skin tag left shoulder.)
[2024-02-17 14:00] VITALS: BP 115/78; PULSE 73; RESP 14; O2SAT 100
[2024-02-17 14:30] VITALS: BP 117/75; PULSE 56; RESP 14
== END 2024-02-17 14:42 | disposition home or self-care (01) ==
PROVIDERS: PCP Family Medicine; Visit Provider Surgery
PROC: (CPT 11421; principal; 2024-02-17 12:00)
DX: D23.62 Other benign neoplasm of skin of left upper limb, including shoulder (principal); D23.39 Other benign neoplasm of skin of other parts of face; L72.11 Pilar cyst; I10 Essential (primary) hypertension; E78.5 Hyperlipidemia, unspecified; M10.9 Gout, unspecified; Z85.46 Personal history of malignant neoplasm of prostate; E66.9 Obesity, unspecified; Z68.35 Body mass index [BMI] 35.0-35.9, adult
CPT/HCPCS: 11421 ×2; 11422; 11441; 12053; 11200; 36415; 85025; 88305; A9270; J0690; J2704; J3010